=== PATIENT | female | born 1955 | race African-American/Black ===

== ENCOUNTER 2016-09-22 21:15 | Observation (INO) | payer MEDICAID ==
[~2016-09-22] VITALS: Ht 167.6 cm; Wt 70.5 kg
--- NOTE | ~2016-09-22 | HEMODYNAMI ---
PATIENT:SHARONDA GEE MEDICAL RECORD: [id number] : 55 LOCATION[facility] [address] [facility] [id number] ADMISSION DATE: 09/22/16 Generatedon:09/23/201613:42 Patient name: SHARONDA GEE Patient #: [id number] SSN: [id number] : 1955 Date of study: 09/23/2016 Page: Of Hemodynamic Procedure Report Patient Data Patient Demographics Procedure consent was obtained First Name: SHARONDA Gender: Female Last Name: MARLEN : 1955 Middle Initial: A Age: 61 year(s) Patient #: [id number] Race: Black SSN: [id number] Additional ID: [id number] Contact details Address: [address] [place] [address] State: [place] City: [facility] [place] code: [address] Admission Admission Data Admission Date: 09/22/2016 Admission Time: 22:30 Admit Source: Other Room #: D.2116 Height (in.): 65.75 BSA: 1.79 (m2) Height (cm.): 167 BMI: 25.1 (kg/m2) Weight (lbs.): 154.32 Weight (kg.): 70 Lab Results Lab Result Date: 09/23/2016 Lab Result Time: 0:00 Biochemistry Name Units Result Min Max BUN mg/dl 11 --(-*--)-- 7 18 Creatinine mg/dl 0.9 --(-*--)-- 0.6 1.3 CBC Name Units Result Min Max Hemoglobin g/dl 15.6 --(--*-)-- 13.5 17.5 Procedure Procedure Types Cath Procedure Diagnostic Procedure [facility] w/Coronaries Procedure Description Procedure Date Procedure Date: 09/23/2016 Procedure Start Time: 13:28 Procedure End Time: 13:40 Procedure Staff Name Function Yuri Gonzalez MD Performing Physician Evelyn Mariscal RT Scrub Oly Walton RN Nurse Richard Turner RT Radio Announcer Helena Mohan RT Monitor Procedure Data Cath Procedure Fluoroscopy Diagnostic fluoroscopy Total fluoroscopy Time: 2 time: 2 min min Diagnostic fluoroscopy Total fluoroscopy dose: 548 dose: 548 mGy mGy Contrast Material Contrast Material Type Amount (ml) Isovue 300 59 Entry Location Entry Primary Successful Side Size Upsize Upsize Entry Closure Succes sful Closure Location (Fr) 1 (Fr) 2 (Fr) Remarks Device Remarks Femoral Right 5 Fr Exoseal artery Estimated blood loss: 10 ml Diagnostic catheters Device Type Used For End Catheter Placement Cordis 5Fr JL 4.0 Procedure Catheter (MP) Cordis 5Fr 3DRC Catheter Procedure (MP) Cordis 5Fr Pigtail Ventriculography Catheter (MP) Procedure Complications No complications Procedure Medications Medication Administration Route Dosage Oxygen NC 2 l/min Heparin Flush Bag added to field 2 bags (1000units/500ml NS) Lidocaine 2% added to field 20 Versed I.V. 1 mg Fentanyl I.V. 50 mcg Versed I.V. 1 mg Fentanyl I.V. 50 mcg Versed I.V. 1 mg Fentanyl I.V. 50 mcg Versed I.V. 0.5 mg Fentanyl I.V. 25 mcg Versed I.V. 0.5 mg Fentanyl I.V. 25 mcg Hemodynamics Rest BSA: 1.79 (m2) HGB: 15.6 (g/dl) O2 Consumption: Estimated: 189.45 (ml/min) O2 Co nsumption indexed: Estimated:105.84 (ml/min/m) Heart Rate: 100 (bpm) Pressure Samples Time Site Value (mmHg) Purpose Heart Use Rate(bpm) 13:36 LV 118/21,10 Snapshot 100 13:37 LV 126/-19,5 Snapshot 100 13:37 AO 135/75(99) Pullback 92 13:37 LV 140/-16,7 Pullback 92 Gradients Valve Time Site 1 Site 2 Mean SEP/DFP Peak To Heart Use (mmHg) (sec/min) Peak Rate (mmHg) (bpm) Aortic 13:37 LV AO 10 21 5 92 140/-16,7 135/75(99) Calculations Valve P-P Mean Valve Index Valve Source Name Gradient Area Flow (cm2) Aortic 5 10 5 10 Snapshots Pre Cath Intra NCS Post Cath Vital Signs Time Heart Resp SPO2 NIBP (mmHg) Rhythm Pain Sedation Rate (ipm) (%) Status Level (bpm) 13:11:31 105 26 100 157/98(119) NSR 0 (11) 10(A) , No pain 13:15:41 101 23 100 133/83(101) NSR 0 (11) 10(A) , No pain 13:19:50 99 20 100 126/82(99) NSR 0 (11) 10(A) , No pain 13:24:00 100 20 100 114/76(92) NSR 0 (11) 10(A) , No pain 13:28:08 98 16 100 105/68(87) NSR 0 (11) 9(A) , No pain 13:32:10 100 17 100 114/74(94) NSR 0 (11) 9(A) , No pain 13:36:16 97 15 100 115/75(89) NSR 0 (11) 9(A) , No pain 13:40:15 101 16 100 117/72(94) NSR 0 (11) 9(A) , No pain Medications Time Medication Route Dose Verified Delivered Reason Notes Effec tiveness by by 13:13:58 Oxygen NC 2 Yuri Oly Per l/min Carlos Walton RN physician 13:14:05 Heparin Flush added 2 Yuri Yuri used for Bag to bags Carlos Gonzalez MD procedure (1000units/500ml field NS) 13:14:10 Lidocaine 2% added 20ml Yuri Yuri used for to vial Carlos Gonzalez MD procedure field 13:16:51 Versed I.V. 1 mg Yuri Oly for Carlos Walton RN sedation 13:17:01 Fentanyl I.V. 50 Yuri Oly for mcg Carlos Walton RN sedation 13:20:23 Versed I.V. 1 mg Yuri Oly for Carlos Walton RN sedation 13:20:27 Fentanyl I.V. 50 Yuri Oly for mcg Carlos Walton RN sedation 13:25:33 Versed I.V. 1 mg Yuri Oly for Carlos Walton RN sedation 13:25:36 Fentanyl I.V. 50 Yuri Oly for mcg Carlos Walton RN sedation 13:28:59 Versed I.V. 0.5 Yuri Oly for mg Carlos Walton RN sedation 13:29:03 Fentanyl I.V. 25 Yuri Oly for mcg Carlos Walton RN sedation 13:33:00 Fentanyl I.V. 25 Yuri Oly for mcg Carlos Walton RN sedation 13:33:48 Versed I.V. 0.5 Yuri Oly for mg Carlos Walton RN sedation Procedure Log Time Note 13:00:19 Patient Height : 167 inches 13:00:28 Patient Weight : 70 lbs 13:00:32 Admit Source: Other 13::54 Lab Result : Hemoglobin 15.6 g/dl 13::54 Lab Result : Creatinine 0.9 mg/dl 13::54 Lab Result : BUN 11 mg/dl 13:02:07 Diagnostic Cath Status : Elective 13:05:38 Richard Turner RT(R) sent for patient. Start room use. 13:05:39 Time tracking: Regular hours 13:05:45 Plan of Care:Hemodynamics will remain stable., Cardiac rhythm will remain stable., Comfort level will be maintained., Respiratory function will remain adequate., Patient/ family verbilizes understanding of procedure., Procedure tolerated without complication., Recovers from procedure without complications.. 13:05:56 Patient received from Med II to CCL 1 Alert and oriented. Tansferred to table in Supine position. 13:05:59 Warm blankets applied, and jessica hugger turned on for patient comfort. 13:06:02 Correct patient and procedure confirmed by team. 13:06:04 Signed procedure consent form obtained from patient. 13:06:18 H&P Date Dictated: 09/23/2016 Within 30 days and on chart.. 13:06:21 Family in waiting room. 13:06:23 Patient NPO since Midnight. 13:10:30 ECG and BP/O2 sat monitors applied to patient. 13:10:31 Vital chart was started 13:10:36 Rhythm: sinus tachycardia 13:10:38 Full Disclosure recording started 13:10:41 Pre-procedure instructions explained to patient. 13:10:41 Pre-op teaching completed and patient verbalized understanding. 13:10:44 Is the patient allergic to Iodine/contrast media? No. 13:10:58 Is patient on blood thinner?No 13:11:00 ACC The patient was administered the following blood thiners within the last 24 hours: None 13:11:04 Patient diabetic? No. 13:11:09 Patient not . Patient is over age 55. 13:11:10 Previous problem with sedation/anesthesia? Yes nausea 13:11:11 Snore? Yes 13:11:12 Sleep apnea? No 13:11:13 Deviated septum? No 13:11:14 Opens mouth fully? Yes 13:11:15 Sticks out tongue? Yes 13:11:17 Airway obstruction? No ? 13:11:19 Dentures? No ? 13:11:36 Pre procedure: right dorsailis pedis pulse 1+ Palpable, but thready & weak; easily obliterated 13:11:57 Radial pulse too weak for access. 13:12:16 Patient pain scale 0/10 ?. 13:12:21 IV patent on arrival in left forearm with 0.9% NaCl at [facility]. 13:12:24 Lab results completed and on chart. 13:12:26 Right groin area was prepped with chlora-prep and draped in sterile fashion 13:12:27 Alarms reviewed by R. N. 13:12:28 Sharps counted by scrub and verified by R.N. 13:13:58 Oxygen 2 l/min NC was given by Oly Walton RN; Per physician; 13:14:05 Heparin Flush Bag (1000units/500ml NS) 2 bags added to field was given by Yuri Gonzalez MD; used for procedure; 13:14:10 Lidocaine 2% 20ml vial added to field was given by Yuri Gonzalez MD; used for procedure; 13:15:47 Physician paged 13:15:49 Physician arrived 13:15:49 --------ALL STOP TIME OUT------ 13:15:50 Final Timeout: patient, procedure, and site verified with staff and physician. All members of the team are in agreement. 13:15:53 Right groin site verified by team. 13:15:56 Physical assessment completed. ASA score P 2 - A patient with mild systemic disease as per Yuri Gonzalez MD. 13:16:01 Sedation plan: IV Moderate Sedation Versed, Fentanyl 13:16:51 Versed 1 mg I.V. was given by Oly Walton RN; for sedation; 13:17:01 Fentanyl 50 mcg I.V. was given by Oly Walton RN; for sedation; 13:17:08 Use device set Femoral Dx 13:17:09 Acist Syringe opened to sterile field. 13:17:09 Bag Decanter opened to sterile field. 13:17:10 Cardinal Cath Pack opened to sterile field. 13:17:10 Terumo 5Fr [place] Sheath opened to sterile field. 13:17:11 [place] 260cm J .035 wire opened to sterile field. 13:17:15 Acist Hand Control opened to sterile field. 13:17:15 Acist Manifold opened to sterile field. 13:17:16 Cordis Infinity 5Fr Multipack catheter opened to sterile field. 13:17:16 Tegaderm 4 x 4 opened to sterile field. 13:20:23 Versed 1 mg I.V. was given by Oly Walton RN; for sedation; 13:20:27 Fentanyl 50 mcg I.V. was given by Oly Walton RN; for sedation; 13:25:33 Versed 1 mg I.V. was given by Oly Walton RN; for sedation; 13:25:36 Fentanyl 50 mcg I.V. was given by Oly Walton RN; for sedation; 13:28:25 Zero performed for pressure channel P1 13:28:35 Procedure started. 13:28:38 Local anesthetic to right femoral artery with Lidocaine 2% by Yuri Gonzalez MD.INITIAL ACCESS ONLY 13:28:59 Versed 0.5 mg I.V. was given by Oly Walton RN; for sedation; 13:29:03 Fentanyl 25 mcg I.V. was given by Oly Walton RN; for sedation; 13:29:23 A 5 Fr sheath was inserted into the Right Femoral artery 13:31:28 A Cordis 5Fr JL 4.0 Catheter (MP) was advanced over the wire and used for Procedure. 13:32:01 LCA angiography performed. 13:33:00 Fentanyl 25 mcg I.V. was given by Oly Walton RN; for sedation; 13:33:03 Catheter removed. 13:33:17 A Cordis 5Fr 3DRC Catheter (MP) was advanced over the wire and used for Procedure. 13:33:21 RCA angiography performed. 13:33:48 Versed 0.5 mg I.V. was given by Oly Walton RN; for sedation; 13:34:59 Catheter removed. 13:35:05 A Cordis 5Fr Pigtail Catheter (MP) was advanced over the wire and used for Ventriculography. 13:35:16 LV gram done using TABOR 13:35:22 EF : 55 % 13:37:47 Catheter removed. 13:37:58 Cordis 5Fr Exoseal opened to sterile field. 13:38:18 Sheath removed intact; hemostasis achieved with Exoseal to the Right Femoral artery. 13:38:21 Procedure ended.(Physican Out) 13:38:55 Fluoroscopy time 02.00 minutes. 13:39:19 Fluoroscopy dose: 548 mGy 13:39:19 Flurop Dose total: 548 13:39:35 Contrast amount:Isovue 300 59ml. 13:39:37 Sharps counted by scrub and verified by R.N. 13:39:39 Insertion/operative site no bleeding no hematoma. 13:39:43 Post right femoral artery:stable 13:39:51 Post-procedure physical assessment completed. ASA score P 2 - A patient with mild systemic disease as per Yuri Gonzalez MD. 13:39:55 Post procedure rhythm: unchanged. 13:39:58 Estimated blood loss: 10 ml 13:40:01 Post procedure instruction explained to patient.Patient verbalizes understanding. 13:40:10 Procedure type changed to Cath procedure, Diagnostic procedure, LHC, LHC w/Coronaries 13:40:11 Procedure and supply charges have been captured, reviewed, submitted and are correct. 13:40:37 Procedure Complication : No complications 13:40:40 Vital chart was stopped 13:40:41 See physician's report for complete and final results. 13:40:47 Patient transfered to [facility] with Bed. 13:40:50 Procedure ended. 13:40:50 Full Disclosure recording stopped 13:40:56 End room use (Document Last) Device Usage Item Name Manufacture Quantity Catalog Hospital Part Current Minimal Lo t# / Number Charge Number Stock Stock Serial# Code Acist Acist 1 27799 241574 798962 622837 20 Syringe Medical [employer] Inc Bag Microtek 1 2002S 643027 51738 029491 5 [employer] Cardinal Cardinal [address] 772826 09435 658752 5 Cath Pack Health Terumo Terumo 1 [id number] 735604 893216 652806 [address] [place] [address] [place] 1 835840 732371 561286 875931 30 260cm J .035 wire Acist Acist 1 51525 044475 030469 791229 5 Hand Medical Control Systems Inc Acist Acist 1 96458 984470 164715 946710 5 Manifold Medical Systems Inc Cordis Cardinal 1 XL0837 767102 19441 427423 30 [place] [employer] 5Fr Multipack catheter Tegaderm 1 1626W 491422 560265 204282 5 4 x 4 Cordis Cardinal 1 905894 5 5Fr JL Health 4.0 Catheter (MP) Cordis Cardinal 1 696357 5 5Fr 3DRC Health Catheter (MP) Cordis Cardinal 1 487788 5 5Fr Health Pigtail Catheter (MP) Cordis Cardinal 1 EX500 719726 724123 658386 10 5Fr Health Exoseal Signature Audit [place] Stage Time Signature Unsigned Intra-Procedure 09/23/2016 Helena Mohan 1:42:37 PM RT(R) Signatures Monitor : Helena Mohan Signature : RT Date : Time : [id number] [place] [address]
[2016-09-22 21:59] LABS: BASOPHILS 0.1 % (0.0-2.0); EOSINOPHILS 0 % (0-7); HEMATOCRIT 47.7 % (36.0-48.0); HEMOGLOBIN 16.7 g/dL (12-16); IMMATURE GRANULOCYTES 0.3 % (0-5); LYMPHOCYTES 10.8 % (15-50); MCH 28.1 pg (26.0-34.0); MCV 80.2 fL (80.0-100.0); MEAN PLATELET VOLUME 9.3 fL (7.4-10.4); MONOCYTES 5.4 % (2-11); NEUTROPHILS 83.4 % (40-80); PLATELET COUNT 300 10x3/uL (130-400); RBC 5.95 10x6/uL (4.00-5.40); RDW 13.9 % (11.5-14.5); WBC 11.2 10x3/uL (4.8-10.8)
[2016-09-22 22:17] LABS: ALBUMIN 3.3 g/dL (3.4-5.0); ALKALINE PHOSPHATASE 105 U/L (46-116); ALT (SGPT) 41 U/L (10-68); BILIRUBIN - TOTAL 0.86 mg/dL (0.2-1.3); CALC OSMOLALITY 270 mosm/kg (275-300); CALCIUM 9.5 mg/dL (8.5-10.1); CARBON DIOXIDE 28.4 mmol/L (21.0-32.0); CHLORIDE - SERUM 94 mmol/L (98-107); GLUCOSE 142 mg/dL (74-106); POTASSIUM - SERUM 3.1 mmol/L (3.5-5.1); PROTEIN - SERUM 8.3 g/dL (6.4-8.2); SODIUM 135 mmol/L (136-145); UREA NITROGEN 10 mg/dL (7-18); eGFR NON AFRICAN AMERICAN 60 mL/min (90-120)
[2016-09-22 22:25] LABS: AMYLASE - SERUM 87 U/L (25-115); LIPASE 80 U/L (73-393); PRO BNP 77 pg/mL (0-125)
[2016-09-22 22:30] LABS: TROPONIN-I < 0.017 ng/mL (0.000-0.060)
--- NOTE | 2016-09-22 23:52 | NUR ---
REPORT RECIVED FROM MONICA FROM ER REGARDING PT PT PRESENTED TO ER WITH C/O N/V/D AND CHEST PAIN PT DENIES CHEST PAIN AT THIS TIME PER MONICA RN IN ER AND TROPONIN NEGATIVE. WILL REVIEW ER CHART AND EKG WHEN PT ARRIVES TO FLOOR
[2016-09-23 01:01] VITALS: BP 141/83; Ht 167.6 cm; Wt 70.5 kg
[2016-09-23 04:00] VITALS: BP 134/80
[2016-09-23 07:46] LABS: BASOPHILS 0.1 % (0.0-2.0); EOSINOPHILS 0.2 % (0-7); HEMATOCRIT 45.6 % (36.0-48.0); HEMOGLOBIN 15.6 g/dL (12-16); IMMATURE GRANULOCYTES 0.2 % (0-5); LYMPHOCYTES 14.5 % (15-50); MCH 28.1 pg (26.0-34.0); MCHC 34.2 g/dL (31.0-37.0); MEAN PLATELET VOLUME 9.8 fL (7.4-10.4); MONOCYTES 8.3 % (2-11); NEUTROPHILS 76.7 % (40-80); PLATELET COUNT 285 10x3/uL (130-400); RBC 5.56 10x6/uL (4.00-5.40); WBC 9.6 10x3/uL (4.8-10.8)
[2016-09-23 07:57] LABS: ANION GAP 13.1 mmol/L (8-16); CARBON DIOXIDE 32.3 mmol/L (21.0-32.0); CREATININE - SERUM 0.9 mg/dL (0.6-1.3); POTASSIUM - SERUM 3.4 mmol/L (3.5-5.1)
[2016-09-23 08:00] VITALS: BP 133/84
--- NOTE | 2016-09-23 09:18 | NUR ---
TELEMETRY SR. CONSENTS SIGNED FOR [facility]. WILL CONT. PLAN OF CARE.
[2016-09-23 11:50] VITALS: BP 140/84
--- NOTE | 2016-09-23 13:02 | NUR ---
PRE-OPS GIVEN. TO ELECTRIC TRUCK CRANE OPERATOR BY BED.
--- NOTE | 2016-09-23 13:59 | NUR ---
BACK FROM LADIES ATTENDANT. VS WNL. RIGHT GROIN STABLE WITHOUT BLEEDING OR HEMATOMA NOTED. WILL MONITOR.
[2016-09-23 15:28] VITALS: BP 110/70
--- NOTE | 2016-09-23 16:03 | NUR ---
BED REST UP. GROIN STABLE.
[2016-09-23] MEDS ORDERED: ZESTORETIC 20/21 TAB PO (16:40)
[2016-09-23] MEDS ORDERED: NORVASC2.5 MG PO (16:40)
[2016-09-23] MEDS ORDERED: OMEPRAZOLE20 M1 PO (16:41)
--- NOTE | 2016-09-23 19:38 | NUR ---
RESUMED CARE OF PT, LYING IN BED RESPIRATIONS EVEN AND UNLABORED ON ROOM AIR. RIGHT AC SALINE LOCKED. 87 SR ON TELEMETRY. RIGHT GROIN C/D/I. PLAN OF CARE DISCUSSED. CALL LIGHT IN REACH. SEE NURSE ASSESSMENT. WILL CONTINUE TO MONITOR.
[2016-09-23 20:00] VITALS: BP 128/80
[2016-09-24] VITALS: BP 138/91
--- NOTE | 2016-09-24 04:19 | NUR ---
LYING IN BED WITH EYES CLOSED, CALL LIGHT IN REACH. WILL CONTINUE WITH PLAN OF CARE.
--- NOTE | 2016-09-24 06:39 | NUR ---
NO CHANGES FROM PREVIOUS ASSESSMENT, CALL LIGHT IN REACH.
[2016-09-24 07:41] VITALS: BP 146/87
--- NOTE | 2016-09-24 09:14 | NUR ---
TELEMETRY SR. AT BS. CALL LIGHT IN REACH. WILL CONT. PLAN OF CARE.
--- NOTE | 2016-09-24 09:34 | NUR ---
LEAVING FOR CT BY W/C.
[2016-09-24 12:05] VITALS: BP 152/93
--- NOTE | 2016-09-24 14:00 | NUR ---
RATIONALE FOR SCD'S EXPLAINED. REFUSED SCD'S
[2016-09-24 16:05] VITALS: BP 135/78
--- NOTE | 2016-09-24 18:42 | HP ---
PATIENT: SHARONDA GEE MEDICAL RECORD: [id number] ACCOUNT: [id number] LOCATION:[address] : 55 ADMISSION DATE: 09/22/16 HISTORY AND PHYSICAL EXAMINATION Admission History and Physical DATE OF ADMISSION: 09/22/2016 CHIEF COMPLAINT: Chest pain. HISTORY OF PRESENT ILLNESS: This is a 61-year-old female who presented with acute onset of nausea, vomiting and some diarrhea that started the morning of September 22 then, started having chest pain later in the day as a burning type achy pain in the center of her chest. She states this is different from her reflux and does not radiate out to either arm; however, she has continued to have some chest pain while here in the hospital. EKG showed some anterior and lateral T-wave changes. She does not have a history of cardiac problems. She is admitted for further evaluation. PAST MEDICAL AND SURGICAL HISTORY: She has hypertension and reflux. ALLERGIES: No known drug allergies. PAST SURGICAL HISTORY: Hysterectomy. HOME MEDICATIONS: Amlodipine 2.5 mg once a day, lisinopril/HCTZ 20/25 once a day. HABITS: She does smoke every day. She drinks a couple of beers a day. Denies any ____. She admits to occasional marijuana. SOCIAL HISTORY: She is and unemployed. FAMILY HISTORY: Her father , but she really does not know much about his history. Her mother is alive at 87. She has glaucoma, arthritis and patient thinks that her mother has a history of some heart trouble. Sisters have high blood pressure, and one has breast cancer. REVIEW OF SYSTEMS: GENERAL: No major weight changes. HEENT: No particular sinus or allergy problems. RESPIRATORY: No history of asthma or emphysema. CARDIAC: No history of coronary artery disease. GASTROINTESTINAL: She has reflux. GENITOURINARY: No significant problems there. MUSCULOSKELETAL: No significant joint aches and pains. NEUROLOGIC: No seizures or migraine headaches. PSYCHIATRIC: Denies depression or melancholia. PHYSICAL EXAMINATION: VITAL SIGNS: Temperature is 98.1, pulse 96, respirations 18, blood pressure 133/84 and O2 sat 99% on room air. GENERAL: She does not appear to be in acute distress. She is awake and alert. HEENT: Grossly within normal limits. HISTORY AND PHYSICAL [id number] GEE,SHARONDA A NECK: Supple. HEART: Regular rate and rhythm without murmur. LUNGS: Fairly clear. ABDOMEN: Soft, flat, nontender. EXTREMITIES: No edema. NEUROLOGIC: Unremarkable. LABORATORY DATA: EKG shows sinus tachycardia with a rate of 105 and there are some anterior and lateral T-wave changes that are nonspecific. CBC is normal. Cardiac enzymes are normal. LFTs are okay. Basic metabolic panel is okay except potassium a little low at 3.1. ASSESSMENT: 1. Chest pain. 2. Nausea and vomiting. 3. History of hypertension. PLAN: Cardiology has been consulted and she will be taken to the landscape laborer later today. Other tests and procedures as warranted. TRANSINT:[id number] Voice Confirmation ID: [id number] DOCUMENT ID: [id number] ELIZA CURYR MD at 1842 CC: [id number] DICTATION DATE: 09/23/16 1414 HOSPITAL SOCIAL WORKER: 09/23/16 1508 ADM IN [place] [id number] [place] [address]
--- NOTE | 2016-09-24 19:34 | NUR ---
DISCHARGE PER DR CURRY, INSTRUCTIONS COMPLETE. IV REMOVED WITH TIP INTACT. REMOVED FROM TELEMETRY.
--- NOTE | 2016-09-24 19:45 | NUR ---
WHEELED OUT TO ER PARKING LOT.
--- NOTE | 2016-09-30 13:16 | OP ---
PATIENT NAME: SHARONDA GEE MEDICAL RECORD: [id number] :55 LOCATION:[address] ADMISSION DATE:09/22/16 SURGEON: JORDAN SANDS M.D. DATE OF OPERATION: 09/23/2016 REFERRING PHYSICIAN: Doug Ko MD. PROCEDURES PERFORMED: 1. Selective coronary angiography. 2. Left heart catheterization with ventriculogram. INDICATION: A 61-year-old who presents with symptoms of chest pain and abnormal EKG. EQUIPMENT USED: A 5-Pakistani JL4, Uvaldo right, pigtail catheter. TECHNIQUE: A 5-Pakistani sheath was inserted in retrograde fashion in the right common femoral artery. Next, selective coronary angiography was performed in standard views using 5-Pakistani JL4 and Uvaldo right. Left heart catheterization was performed using pigtail catheter. CORONARY ANATOMY: 1. Left main: Left main trunk is large in caliber. It gives rise to the LAD and circumflex. There is no obstruction. 2. LAD: This is a large-caliber vessel extending to the apex. It is a smooth-walled vessel and angiographically normal. 3. Circumflex: This vessel is large in caliber. It supplies the lateral branch in distal segment. The circumflex and lateral branch are smooth-walled vessels and angiographically normal. 4. Right coronary: This vessel is large in caliber and dominant. It supplies the PDA and posterolateral branch in distal segment. This vessel is smooth-walled and angiographically normal. 5. Left ventricle: Left ventricle is normal in size and function. No wall motion abnormalities are seen. Estimated ejection fraction is 55%. IMPRESSION: 1. Normal coronary arteries. 2. Normal left ventricular function. TRANSINT:[id number] Voice Confirmation ID: [id number] DOCUMENT ID: [id number] JORDAN SANDS M.D. at 1316 CC: [id number] DICTATION DATE: 09/23/16 1344 BRICKLAYER HELPER: 09/23/16 1902 DIS IN 09/24/16 [facility] [address] [facility] [address]
== END 2016-09-24 19:45 | disposition home or self-care (01) ==
LOC: D.ER 21:15 → D.M2 22:30 → OBSVTIME 22:30 → D.M2 22:30
PROVIDERS: Family Medicine; Internal Medicine Cardiovascular Disease; ADMIT Family Medicine
DX: R07.89 Other chest pain (principal); I10 Essential (primary) hypertension; K21.9 Gastro-esophageal reflux disease without esophagitis; R94.31 Abnormal electrocardiogram [ECG] [EKG]

== ENCOUNTER → 2018-07-05 08:55 | Outpatient (CLI) | payer MEDICAID ==
[2016-09-23 01:01] VITALS: BMI 25.0
[~2018-07-05 08:55] MED LIST: NORVASC2.5 MG PO; OMEPRAZOLE20 M1 PO; ZESTORETIC 20/21 TAB PO
== END | disposition home or self-care (01) ==
LOC: D.US 08:55
DX: R10.11 Right upper quadrant pain (principal)

== ENCOUNTER 2020-01-22 20:26 | Inpatient (IN) | payer OTHER ==
[~2020-01-22] VITALS: Ht 167.6 cm; Wt 108.9 kg
[2020-01-22 21:16] LABS: BASOPHILS 0.1 % (0-2); EOSINOPHILS 1.6 % (0-7); HEMATOCRIT 37.3 % (36.0-48.0); HEMOGLOBIN 12.1 g/dL (12-16); IMMATURE GRANULOCYTES 0.1 % (0-5); LYMPHOCYTES 25.3 % (15-50); MCH 24.2 pg (26.0-34.0); MCHC 32.4 g/dL (31.0-37.0); MCV 74.7 fL (80.0-100.0); MEAN PLATELET VOLUME 9.5 fL (7.4-10.4); NEUTROPHILS 65.9 % (40-80); RBC 4.99 10x6/uL (4.00-5.40); RDW 15.5 % (11.5-14.5); WBC 8.1 10x3/uL (4.8-10.8)
[2020-01-22 21:22] LABS: PLATELET COUNT 406 10x3/uL (130-400)
[2020-01-22 21:26] LABS: CALC OSMOLALITY 263 mosm/kg (275-300); CALCIUM 9.5 mg/dL (8.5-10.1); CARBON DIOXIDE 30.8 mmol/L (21.0-32.0); CHLORIDE - SERUM 94 mmol/L (98-107); CREATININE - SERUM 0.8 mg/dL (0.6-1.3); GLUCOSE 113 mg/dL (74-106); POTASSIUM - SERUM 4.7 mmol/L (3.5-5.1); SODIUM 132 mmol/L (136-145); UREA NITROGEN 6 mg/dL (7-18); eGFR NON AFRICAN AMERICAN 76 mL/min (90-120)
[2020-01-22 21:32] LABS: ALBUMIN 2.9 g/dL (3.4-5.0); ALKALINE PHOSPHATASE 97 U/L (30-120); ALT (SGPT) 19 U/L (10-68); AMYLASE - SERUM 56 U/L (25-115); BILIRUBIN - TOTAL 0.59 mg/dL (0.2-1.3); LIPASE 54 U/L (73-393); PROTEIN - SERUM 8.9 g/dL (6.4-8.2)
--- NOTE | 2020-01-22 21:55 | NUR ---
PT TO CT AT THIS TIME.
[2020-01-22 23:00] VITALS: BP 156/84
[2020-01-22 23:45] VITALS: BP 135/73
[2020-01-23 00:01] VITALS: BP 157/93; BMI 38.8
[2020-01-23 05:25] LABS: BASOPHILS 0.2 % (0-2); HEMATOCRIT 34.8 % (36.0-48.0); HEMOGLOBIN 11.3 g/dL (12-16); IMMATURE GRANULOCYTES 0.3 % (0-5); LYMPHOCYTES 26.1 % (15-50); MCH 24.7 pg (26.0-34.0); MCHC 32.5 g/dL (31.0-37.0); MEAN PLATELET VOLUME 8.7 fL (7.4-10.4); MONOCYTES 7.4 % (2-11); PLATELET COUNT 347 10x3/uL (130-400); RBC 4.58 10x6/uL (4.00-5.40); RDW 15.4 % (11.5-14.5); WBC 6.6 10x3/uL (4.8-10.8)
[2020-01-23 05:49] LABS: ALBUMIN 2.6 g/dL (3.4-5.0); BILIRUBIN - TOTAL 0.31 mg/dL (0.2-1.3); CALCIUM 8.7 mg/dL (8.5-10.1); CARBON DIOXIDE 31.1 mmol/L (21.0-32.0); CREATININE - SERUM 0.9 mg/dL (0.6-1.3); PROTEIN - SERUM 7.4 g/dL (6.4-8.2)
[2020-01-23 05:55] LABS: ANION GAP 8.9 mmol/L (8-16)
[2020-01-23 06:16] VITALS: BP 136/68
--- NOTE | 2020-01-23 08:00 | NUR ---
ASSESSMENT PER FLOW SHEET. PATIENT IS WITHOUT DISTRESS.SHE DENIES NEEDS AT PRESENT. CALL LIGHT IN REACH.
[2020-01-23 08:29] VITALS: BP 107/73
[2020-01-23 12:54] VITALS: BP 119/61
[2020-01-23 16:38] VITALS: BP 127/68
[2020-01-23 17:04] LABS: BILIRUBIN NEGATIVE (NEGATIVE); GLUCOSE NEGATIVE (NEGATIVE); KETONE NEGATIVE (NEGATIVE); NITRITE NEGATIVE (NEGATIVE); UROBILINOGEN NORMAL (NORMAL)
[2020-01-23 17:05] LABS: BACTERIA FEW /hpf (NEGATIVE); WHITE CELLS - URINE OCC /hpf (NEGATIVE)
--- NOTE | 2020-01-23 17:17 | NUR ---
PATIENT IS WITHOUT NEEDS.CALL LIGHT IN REACH.
[2020-01-23 20:58] VITALS: BP 157/82
--- NOTE | 2020-01-23 21:45 | NUR ---
PT STATES SHE HAD A SOFT BM. AND NOW HAS SOME NAUSEA. GIVEN IV ZOFRAN. WILL FALLOW UP. CALL LIGHT IN REACH. BED LOWERED AND LOCKED.
[2020-01-24 00:32] VITALS: BP 139/72
--- NOTE | 2020-01-24 00:55 | NUR ---
PT RESTING IN BED. EYES CLOSED. NO SIGNS OF DISTRESS. BREATHING EVEN AND ULABORED. IV SITE RT AC DRESSING CLEAN DRY AND INTACT. NO SIGNS OF INFECTION OR INFULTRATION. SKIN CLEAN DRY AND INTACT. LUNG SOUNDS CLEAR. BOWEL SOUNDS ACTIVE. WILL CONTINUE PLAN OF CARE. CALL LIGHT IN REACH. BED LOWERED AND LOCKED. BED RAILS UPX2.
--- NOTE | 2020-01-24 02:19 | NUR ---
I have reviewed this patient and I concur with the Shift Assessment completed by the Licensed Practical Nurse today this shift.
[2020-01-24 04:35] VITALS: BP 143/68
[2020-01-24 06:25] LABS: CALC OSMOLALITY 274 mosm/kg (275-300); CALCIUM 8.5 mg/dL (8.5-10.1); CARBON DIOXIDE 28.8 mmol/L (21.0-32.0); CHLORIDE - SERUM 106 mmol/L (98-107); CREATININE - SERUM 0.8 mg/dL (0.6-1.3); GLUCOSE 97 mg/dL (74-106); POTASSIUM - SERUM 3.6 mmol/L (3.5-5.1); SODIUM 139 mmol/L (136-145); eGFR NON AFRICAN AMERICAN 76 mL/min (90-120)
[2020-01-24 06:36] LABS: UREA NITROGEN 4 mg/dL (7-18)
[2020-01-24 08:30] VITALS: BP 125/72
[2020-01-24 12:16] VITALS: BP 157/86
[2020-01-24 13:50] VITALS: Ht 167.6 cm; Wt 108.9 kg
[2020-01-24 14:54] VITALS: BP 149/70
--- NOTE | 2020-01-24 17:45 | NUR ---
PATIENT IV REMOVED WITH CATH TIP INTACT.
--- NOTE | 2020-01-24 18:45 | NUR ---
PATIENT TOLERATED REGULAR DIET. DC INSTRUCTIONS GIVEN TO PATIENT. VERBALIZED UNDERSTANDING. WAITING FOR TRANSPORTATION FOR DC. CALL LIGHT WITHIN REACH.
--- NOTE | 2020-01-24 19:00 | NUR ---
PATIENT ESCORTED DOWN TO ER VIA WC WITH PERSONAL BELONGINGS, BY COAL SAMPLE TESTER TO PRIVATE VEHICLE.
== END 2020-01-24 19:00 | disposition home or self-care (01) | DRG 392 ==
LOC: D.ER 20:26 → D.MS 23:07
PROVIDERS: Family Medicine; ADMIT Family Medicine; ATTEND Family Medicine
DX: K57.92 Diverticulitis of intestine, part unspecified, without perforation or abscess without bleeding (principal); I10 Essential (primary) hypertension; F17.200 Nicotine dependence, unspecified, uncomplicated